=== PATIENT | male | born 1995 | race African-American/Black ===

== ENCOUNTER 2017-04-12 05:15 | Emergency (ER) | payer OTHER ==
[~2017-04-12] VITALS: Ht 172.7 cm; Wt 65.6 kg
[2017-04-12 05:17] VITALS: TEMP 37.3; Ht 172.7 cm; Wt 65.6 kg
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
[2017-04-12 06:45] VITALS: BP 155/84; PULSE 100; O2SAT 96
== END 2017-04-12 06:45 | disposition home or self-care (01) ==
LOC: C.EDB 05:18
DX: S09.90XA Unspecified injury of head, initial encounter (principal); S02.2XXA Fracture of nasal bones, initial encounter for closed fracture; T76.11XA Adult physical abuse, suspected, initial encounter; X58.XXXA Exposure to other specified factors, initial encounter; F17.200 Nicotine dependence, unspecified, uncomplicated